=== PATIENT | female | born 1955 | race Caucasian/White ===

== ENCOUNTER 2016-03-30 13:00 | Emergency (ER) | payer MEDICAID ==
[2016-03-30] MEDS ORDERED: Albuterol/Ipratropium Neb 3 ML AERS HHN ONE ×4 (13:40→15:55)
[2016-03-30] MEDS ORDERED: Sodium Chloride 0.9% 1,000 ML IV ONE (13:40)
--- NOTE | 2016-03-30 13:46 | ED Physician Chart ---
Chief Complaint/HPI - Patient Information Date Seen:: 03/30/16 Time Seen:: 13:41 Chief Complaint:: cough/fever History of Present Illness:: 3 days of worsening cough w fevers up to 104 took tylenol this am...8am. w some relief. feels sweaty now. cough prod of thick yellow sputum. has hx of asthma has used meds some wo relief. denies copd or emphysema hx pos st. and body aches. rt side chest soreness from cough. pos rhinitis. no gi sx nor abd pain. no tob use x 25 yrs. denies etoh or drug use. extensive med hx including htn and prior ND 13 yrs ago. pt says her pmd is Dr CORIE Li Allergies:: Allergies Allergy/AdvReac Type Severity Reaction Status Date / Time acetaminophen [From Percocet] Allergy Verified 08/26/15 14:01 aspirin [From Percodan] Allergy Verified 08/26/15 14:01 hydromorphone HCl Allergy VOMITING Verified 08/26/15 14:01 [From Dilaudid] oxycodone HCl [From Percocet] Allergy Verified 08/26/15 14:01 oxycodone terephthalate Allergy Verified 08/26/15 14:01 [From Percodan] Vitals:: Vital Signs - 8 hr 03/30/16 13:24 Temp 98.4 F HR 98 RR 20 BP 145/95 O2 Sat % 98 Historian:: Patient, Family Member (son) Review of Systems - Review of Systems General/Constitutional: Fever, Chills, No weight loss, No weakness, No diaphoresis, No edema, No loss of appetite Skin: No skin lesions, No rash, No bruising Head: No headache, No light-headedness Eyes: No loss of vision, No pain, No diplopia ENT: No earache, No nasal drainage, No sore throat, No tinnitus Neck: No neck pain, No swelling, No thyromegaly, No stiffness, No mass noted Cardio Vascular: No chest pain, No palpitations, No PND, No orthopnea, No edema Pulmonary: No SOB, Cough, Sputum, No wheezing GI: No nausea, No vomiting, No diarrhea, No pain, No melena, No hematochezia, No constipation, No hematemesis G/U: No dysuria, No frequency, No hematuria Musculoskeletal: No bone or joint pain, No back pain, No muscle pain, Other ( fibromyalgia pains) Endocrine: No polyuria, No polydipsia Psychiatric: No prior psych history, No depression, Anxiety, No anxiety, No suicidal ideation Hematopoietic: No bruising, No lymphadenopathy Allergic/Immuno: No urticaria, No angioedema Neurological: No syncope, No focal symptoms, No weakness, No paresthesia, No headache, No seizure, No dizziness, No confusion, No vertigo Past Medical History - Past Medical History Past Medical History: HTN, CAD (mi 13 yrs ago), ESRD, Renal stone, Thyroid disorder, Arthritis (ra, oa, fibromyalgia) Social History: Non Smoker, No Alcohol, No Drug Use Medication: Reviewed Family Medical History - Family Member Mother Ethnicity: Non- Living Status: Hx Family Cancer: No Hx Family Coronary Artery Disease: No Hx Family Congestive Heart Failure: No Hx Family Hypertension: No Hx Family Stroke: No Hx Family Diabetes: No Hx Family Seizures: No Hx Family Dementia: No Hx Family AIDS: No Hx Family HIV: No Hx Family COPD: No Hx Family Hepatitis: No Hx Family Psychiatric Problems: No Hx Family Tuberculosis: No Physical Exam - Physical Examination General/Constitutional: Awake, Well-developed, well-nourished, Alert, No distress, GCS 15, Ambulatory Other Gen/Cons comments:: pt is mildly diaphoretic and warm to touch. breathing ok speaks full sentences wo pressured speech abd nontnder. Head: Atraumatic Eyes: Lids, conjuctiva normal, PERRL, EOMI Skin: Nl inspection, No rash, No skin lesions, No ecchymosis, Well hydrated, No lymphadenopathy ENMT: External ears, nose nl, Nasal exam nl, Lips, teeth, gums nl Neck: Nontender, Full ROM w/o pain, No JVD, No nuchal rigidity, No bruit, No mass, No stridor Respiratory: Nl effort/Exclusion, Clear to Auscultation, No Wheeze/Rhonchi/Rales Cardio Vascular: RRR, No murmur, gallop, rubs, NL S1 S2 GI: No tenderness/rebounding/guarding, No organomegaly, No hernia, Normal BS's, Nondistended, No mass/bruits, No McBurney tenderness : No CVA tenderness Extremities: No tenderness or effusion, Full ROM, normal strength in all extremities, No edema, Normal digits & nails Other Extremities comments:: diffuse leg tndrness wo swelling or redness. Neuro/Psych: Alert/oriented, DTR's symmetric, Normal sensory exam, Normal motor strength, Judgement/insight normal, Mood normal, Normal gait, No focal deficits Misc: normal gait, Normal back, No paraspinal tenderness Other:: rectal temp 99.5 at 1;49p Labs/Radiology/EKG Results - Lab Results Results: Laboratory Tests 03/30/16 03/30/16 03/30/16 14:00 14:00 14:00 WBC 6.9 RBC 4.47 Hgb 12.5 Hct 36.8 MCV 82.4 MCH 27.9 MCHC Differential 33.9 RDW 12.5 Plt Count 246 D MPV 7.5 Neutrophils % 69.1 Lymphocytes % 22.3 Monocytes % 6.0 Eosinophils % 2.0 Basophils % 0.6 D-Dimer 318 Sodium 135 L Potassium 3.6 Chloride 103 Carbon Dioxide 21.6 Anion Gap 14.0 BUN 17 Creatinine 1.0 Est GFR ( Amer) > 60.0 Est GFR (Non-Af Amer) > 60.0 BUN/Creatinine Ratio 17.0 Glucose 175 H Whole Bld Lactic Acid 2.50 H* Calcium 9.4 Total Bilirubin 0.3 AST 11 L ALT 42 Alkaline Phosphatase 134 H Troponin I B-Natriuretic Peptide < 5.0 L Total Protein 7.3 Albumin 4.1 Globulin 3.2 Albumin/Globulin Ratio 1.3 03/30/16 14:00 WBC RBC Hgb Hct MCV MCH MCHC Differential RDW Plt Count MPV Neutrophils % Lymphocytes % Monocytes % Eosinophils % Basophils % D-Dimer Sodium Potassium Chloride Carbon Dioxide Anion Gap BUN Creatinine Est GFR ( Amer) Est GFR (Non-Af Amer) BUN/Creatinine Ratio Glucose Whole Bld Lactic Acid Calcium Total Bilirubin AST ALT Alkaline Phosphatase Troponin I < 0.01 L B-Natriuretic Peptide Total Protein Albumin Globulin Albumin/Globulin Ratio - Radiology Results Results: cxr nad - EKG Interpretations EKG Time:: 13:50 Rhythm: nsr Carter: -14 Rate: 82 Comments:: nsr wnl. nrml st/t's ED Septic Shock - . Is Septic Shock (SBP<90, OR Lactate>4 mmol\L) present?: No - <6hrs of presentation: Vital Signs: Vital Signs - 8 hr 03/30/16 13:24 Temp 98.4 F HR 98 RR 20 BP 145/95 O2 Sat % 98 Reassessment (Disposition) - Reassessment Reassessment:: call placed to CORIE Li 3;48p dw Dr FONTENOT P at 4;41...he agrees ok to dc on abx and fu at office. rx zpac. zmax iv in ed. fu if worse. cont home pulmonary meds. contact Dr Li if fever very high or weak or trouble breathing. suspect the elev lactic acid was due to lab delay/error draw....clinically does nt seem likely. Reassessment Condition:: Improved - Diagnosis Diagnosis:: bronchitis mild elev lactic acid - Aftercare/Follow up Instructions Aftercare/Follow-Up Instructions:: Counseled pt & family regarding lab results/ diagnosis & need follow up - Patient Disposition Discharge/Transfer:: Home Condition at Disposition:: Improved
[2016-03-30 14:28] LABS: % BASOPHILS 0.6 % (0.0-2.0); % LYMPHOCYTES 22.3 % (20.0-50.0); % NEUTROPHILS 69.1 % (40.0-80.0); HEMATOCRIT 36.8 % (35.0-45.0); HEMOGLOBIN 12.5 gm/dL (11.7-15.5); MEAN CELL VOLUME 82.4 fl (81-100); MEAN CORPUSCULAR HEMOGLOBIN 27.9 pg (27.0-31.0); MEAN CORPUSCULAR HGB CONC 33.9 pg (28.0-36.0); MEAN PLATELET VOLUME 7.5 fl; NEUTROPHILE ABSOLUTE 4.9 Th/cmm (1.8-8.0); RED BLOOD COUNT 4.47 Mil/cmm (3.80-5.10); RED CELL DISTRIBUTION WIDTH 12.5 % (11.5-20.0); WHITE BLOOD COUNT 6.9 Th/cmm (4.8-10.8)
[2016-03-30 14:29] LABS: PLATELET COUNT 246 Th/cmm (150-400)
[2016-03-30 14:40] LABS: ALB/GLOB RATIO 1.3 (1.0-1.8); ALKALINE PHOSPHATASE 134 U/L (34-104); BILIRUBIN,TOTAL 0.3 mg/dL (0.3-1.0); BUN - UREA NITROGEN 17 mg/dL (7-25); CALCIUM SERUM 9.4 mg/dL (8.6-10.3); CARBON DIOXIDE 21.6 mEq/L (21.0-31.0); CHLORIDE 103 mEq/L (98-107); GLUCOSE 175 mg/dL (70-105); POTASSIUM SERUM 3.6 mEq/L (3.5-5.1); SGOT 11 U/L (13-39); SGPT/ALT 42 U/L (7-52); SODIUM SERUM 135 mEq/L (136-145)
[2016-03-30 14:55] LABS: BNP < 5.0 pg/mL (5.0-100.0)
--- NOTE | 2016-03-30 16:04 | Diagnostic Imaging Report ---
Portable chest x-ray History: Cough Allowing for portable technique the heart size is normal. No focal pulmonary parenchymal processes. No hilar or mediastinal abnormalities. Impression: No acute abnormalities.
[2016-03-30] MEDS ORDERED: Azithromycin 500 MG in Sodium Chloride 0.9% 250 ML IV ONE (16:40)
[2016-03-30 18:15] LABS: BARBITURATES URINE NEGATIVE (NEGATIVE)
[2016-03-30 18:18] LABS: AMPHETAMINE URINE NEGATIVE (NEGATIVE)
== END 2016-03-30 17:50 | disposition home or self-care (01) ==
LOC: ER 13:00
DX: J40 Bronchitis, not specified as acute or chronic (principal); R74.0 Nonspecific elevation of levels of transaminase and lactic acid dehydrogenase [LDH]; I12.0 Hypertensive chronic kidney disease with stage 5 chronic kidney disease or end stage renal disease; N18.6 End stage renal disease; I25.10 Atherosclerotic heart disease of native coronary artery without angina pectoris; E07.9 Disorder of thyroid, unspecified; M79.7 Fibromyalgia; Z88.6 Allergy status to analgesic agent; Z88.8 Allergy status to other drugs, medicaments and biological substances
CPT/HCPCS: 36415-UA; 71010-TC; 80053-TC; 81025-TC; 83605; 83880-TC; 84484-TC; 85025-TC; 85379-TC; 87070; 93005; 94640; J0456; J7030